=== PATIENT | male | born 1980 | race Caucasian/White ===

== ENCOUNTER 2025-05-30 12:52 | Emergency (ER) | payer BC, SELFPAY ==
--- NOTE | ~2025-05-30 | XR_ITS ---
EXAMINATION: XR tibia fibula LT 2V, 05/30/2025 14:26 CDT HISTORY: Machete injury TO ANTERIOR ANKLE COMPARISON: No comparisons available. Findings: No acute fracture or malalignment. No significant degenerative changes. Soft tissues unremarkable. Impression: No acute fracture or malalignment. Reviewed, dictated and finalized at location P. Impression: No acute fracture or malalignment.
[2025-05-30 12:59] VITALS: BP 115/70; PULSE 63; RESP 20; TEMP 36.7; O2SAT 97
--- NOTE | 2025-05-30 13:51 | ED.GENADULT ---
HPI - General Adult General Chief complaint: Wound/Laceration Stated complaint: cut to left leg Time Seen by Provider: 05/30/25 13:04 History of Present Illness HPI narrative: This is a 45-year-old male presenting ED with a laceration was left ankle. Patient was cutting down plants with a freshly sharp and a machete when he struck himself just above the ankle. Bleeding was controlled with direct pressure on scene. His last tetanus was 6 months ago. Patient has no other injuries. Related Data Allergies Allergy/AdvReac Type Severity Reaction Status Date / Time shellfish derived Allergy Intermediate Unknown Verified 05/30/25 13:04 Exam Narrative: APPEARANCE: No apparent distress. Head: atraumatic. EYES: EOMI, NOSE: Atraumatic NECK: Trachea midline RESPIRATORY: No increased rate of breathing CARDIOVASCULAR: RRR, PT and DP pulses intact in the left foot. A less than 2 seconds. ABDOMINAL: Non-distended MUSCULOSKELETAl: Patient is unable to extend his left great toe. He is able to extend toes 2 through 5. Flexion intact in all toes. Dorsiflexion and plantar flexion are intact. NEURO: Alert. Moving 4/4 extremities SKIN:: 6 cm sent laceration over the left anterior krause. Deeper inspection revealed visible muscle bodies moving with dorsiflexion of the ankle. PSYCHIATRIC: Normal affect Course Vital Signs Vital signs: Vital Signs Temperature 98.0 F 05/30/25 12:59 Pulse Rate 63 05/30/25 12:59 Respiratory Rate 20 05/30/25 12:59 Blood Pressure 115/70 05/30/25 12:59 Pulse Oximetry 97 05/30/25 12:59 Oxygen Delivery Room Air 05/30/25 12:59 Temperature 98.0 F 05/30/25 12:59 Pulse Rate 63 05/30/25 12:59 Respiratory Rate 20 05/30/25 12:59 Blood Pressure 115/70 05/30/25 12:59 Pulse Oximetry 97 05/30/25 12:59 Oxygen Delivery Room Air 05/30/25 12:59 Procedures Laceration Laceration 1: Date: 05/30/25 Time: 13:53 Site: lower extremity Side (If applicable): left Size (cm): 6 Description: linear Depth: simple, single layer Local Anesthetic: bupivacaine 0.25% Amount of anesthesia used (mL): 8 Pre-repair: wound explored and irrigated extensively ====== Skin Level ====== Skin layer closed with: nylon Size (cm): 4-0 Number of sutures: 6 Technique: simple, interrupted ====== Subcutaneous Layer ====== ====== Muscle Layer ====== ====== Tendon Layer ====== Medical Decision Making MDM Narrative Medical decision making narrative: -Course: 45-year-old male presenting with a left krause laceration secondary to a machete incident. Physical exam shows a 6 cm laceration to the left anterior krause. Patient is unable to extend his great toe. He is able to extend toes 2 through 5 and [place] flex his ankle. Injury consistent with an extensor hallucis longus tendon injury. Case was discussed with Dr. Jose. He recommended copious irrigation, superficial closure and close follow-up in clinic. Patient is agreeable to this plan. Patient discharged with close orthopedic follow-up. -DDX includes but is not limited to: Tendon injury, muscle injury, superficial laceration Vital Signs Vital Signs: Vital Signs Temperature 98.0 F 05/30/25 12:59 Pulse Rate 63 05/30/25 12:59 Respiratory Rate 20 05/30/25 12:59 Blood Pressure 115/70 05/30/25 12:59 Pulse Oximetry 97 05/30/25 12:59 Oxygen Delivery Room Air 05/30/25 12:59 Temperature 98.0 F 05/30/25 12:59 Pulse Rate 63 05/30/25 12:59 Respiratory Rate 20 05/30/25 12:59 Blood Pressure 115/70 05/30/25 12:59 Pulse Oximetry 97 05/30/25 12:59 Oxygen Delivery Room Air 05/30/25 12:59 Discharge Plan Discharge Clinical Impression: Laceration of extensor hallucis longus tendon, Laceration of skin Patient Disposition: Home Condition: Stable Instructions: Antibiotic Form, Care For Your Stitches (DC), Laceration (ED) Additional Instructions: You were seen in the emergency department after a machete injury. Your extensor hallucis longus appears to be severed. Please call Dr. Jose's office to arrange close follow-up early next week. Please use Motrin Tylenol for pain control. Patient Language: Jordanian Prescriptions: New cephalexin 500 mg capsule 500 mg PO Q12H Qty: 14 0RF ibuprofen 800 mg tablet 800 mg PO TID PRN (Reason: pain) 7 Days Qty: 21 0RF acetaminophen 500 mg tablet 1,000 mg PO TID PRN (Reason: nicole) 7 Days Qty: 42 0RF Follow-up/Referrals: Osmin Jose MD [Physician, Orthopedics] - 1 Day Referral Note: Extensor hallucis longus tendon injury UNKNOWN,DOCTOR [Non-Staff]
[2025-05-30] MEDS: IBUPROFEN 400 MG TABLET 800 MG PO (13:56)
[2025-05-30] MEDS: ACETAMINOPHEN 500 MG TABLET 1000 MG PO (13:56)
[2025-05-30] MEDS: WATER, STERILE FOR INJECTION 10 ML VIAL XX (13:58)
== END 2025-05-30 15:03 | disposition home or self-care (01) ==
PROVIDERS: Emergency Provider Emergency Medicine
DX: S86.222A Laceration of muscle(s) and tendon(s) of anterior muscle group at lower leg level, left leg, initial encounter (principal); W26.0XXA Contact with knife, initial encounter
CPT/HCPCS: 12002; 73590; 96372; 99283; A9270; J0690